=== PATIENT | female | born 1995 | race Caucasian/White ===

== ENCOUNTER 2017-07-06 00:26 | Emergency (ER) | payer SELFPAY ==
[2017-07-06] MEDS ORDERED: ACETAMINOPHEN 325 MG TABLET PO ONE (01:31)
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
--- NOTE | 2017-07-06 01:41 | RADIOLOGY REPORT (SQ) ---
EXAM DESCRIPTION: CT HEAD WITHOUT CLINICAL HISTORY: head and face pain , etoh COMPARISON: None available TECHNIQUE: Axial CT of the head obtained from the skull apex to the skull base without contrast. FINDINGS: No acute intracranial hemorrhage identified. No mass, mass effect, shift of the midline, abnormal extra-axial fluid collection or CT evidence of acute ischemic change identified. The ventricular system is unremarkable. No acute abnormalities of the supratentorial white matter, basal ganglia, cerebellum, or brainstem. Minimal mucosal thickening of the paranasal sinuses. Mastoid air cells are well aerated. No skull fracture identified. Visualized orbits and globes are unremarkable. DLP: 1083.99 mGy-cm IMPRESSION: 1. No acute intracranial abnormality identified. This exam was performed according to our departmental dose-optimization program, which includes automated exposure control, adjustment of the mA and/or kV according to patient size and/or use of iterative reconstruction technique.
--- NOTE | 2017-07-06 02:10 | RADIOLOGY REPORT (SQ) ---
EXAM DESCRIPTION: CT FACIAL AREA WITHOUT CLINICAL HISTORY: head and face pain , etoh COMPARISON: None available TECHNIQUE: Axial CT of the facial bone obtained without contrast. Coronal and sagittal reformatted images available. DLP: 771.94 mGy-cm FINDINGS: Orbits: Orbital floors and hinkle are intact. Intraorbital contents: The globes are intact. Extraocular muscles are symmetric. No intraconal fat stranding. Nasal bones: Intact. Maxilla: The maxillary hard palate is intact. Maxillary antral hinkle are intact. Sinuses: Minimal mucosal thickening of the paranasal sinuses. Zygomatic processes: Intact Pterygoid plates: Intact Mandible: Intact. No mandibular condylar dislocation. Skull base/cervical spine: Visualized portions of the skull base and cervical spine are intact. Visualized mastoid air cells are well aerated. Subcutaneous soft tissues: Mild contusion in the left facial subcutaneous soft tissues. Neck soft tissues: No definite abnormality involving the nasopharynx, oropharynx, or hypopharynx. Fossa of Rosenmuller are clear. Parotid glands and submandibular glands are unremarkable. No cervical lymphadenopathy. IMPRESSION: 1. No acute facial bone fracture identified. This exam was performed according to our departmental dose-optimization program, which includes automated exposure control, adjustment of the mA and/or kV according to patient size and/or use of iterative reconstruction technique.
--- NOTE | 2017-07-06 02:14 | RADIOLOGY REPORT (SQ) ---
EXAM DESCRIPTION: CT CERVICAL SPINE WITHOUT CLINICAL HISTORY: head and face pain , etoh COMPARISON: None available TECHNIQUE: Axial CT of the cervical spine obtained without contrast. FINDINGS: Straightening of the cervical lordosis is likely secondary to patient positioning. The atlantoaxial, atlantodental, and occipitoatlantal intervals are preserved. No fracture identified. Vertebral body height preserved. Film Hypoplastic right cervical rib. Prevertebral soft tissues are unremarkable. Intervertebral disc height preserved. Visualized skull base is intact. No fracture of the visualized facial bones. Visualized mastoid air cells and paranasal sinuses are well aerated. Visualized thyroid is unremarkable. No cervical lymphadenopathy. No pneumothorax in the visualized lung apices. DLP: 195.86 mGy-cm IMPRESSION: 1. No acute fracture or subluxation of the cervical spine. This exam was performed according to our departmental dose-optimization program, which includes automated exposure control, adjustment of the mA and/or kV according to patient size and/or use of iterative reconstruction technique.
[2017-07-06 02:27] VITALS: BP 142/107
== END 2017-07-06 02:20 | disposition left against medical advice (07) ==
LOC: ER 00:26
DX: S09.90XA Unspecified injury of head, initial encounter (principal); W19.XXXA Unspecified fall, initial encounter; Z88.0 Allergy status to penicillin; Z88.3 Allergy status to other anti-infective agents
CPT/HCPCS: 70450; 70486; 72125; 99281

== ENCOUNTER 2017-07-30 23:25 | Emergency (ER) | payer SELFPAY ==
[2017-07-30] MEDS ORDERED: LORAZEPAM INJ 2 MG/1 ML VIAL IM ONE (23:44)
[2017-07-30] MEDS ORDERED: HALOPERIDOL LACTATE INJ 5 MG/1 ML VIAL IM ONE (23:44)
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
[2017-07-31] MEDS ORDERED: HALOPERIDOL LACTATE INJ 5 MG/1 ML VIAL IM ONE (00:06)
[2017-07-31] MEDS ORDERED: DIPHENHYDRAMINE HCL 50 MG/ML VIAL IM ONE (00:07)
[2017-07-31 00:52] LABS: ABSOLUTE BASOPHILS # (AUTO) 0.1 10^3/uL (0.0-0.2); ABSOLUTE LYMPHOCYTES (AUTO) 1.6 10^3/uL (0.5-4.7); ABSOLUTE MONOCYTES (AUTO) 0.4 10^3/uL (0.1-1.4); ABSOLUTE NEUT (AUTO) 5.6 10^3/uL (1.7-8.2); BASOPHILS % (AUTO) 0.7 % (0-2); EOSINOPHILS % (AUTO) 0.4 % (0-6); HEMATOCRIT 44.8 % (36.0-47.0); HEMOGLOBIN 15.4 g/dL (12.0-15.5); LYMPHOCYTES % (AUTO) 21.2 % (13-45); MEAN CORPUSCULAR HEMOGLOBIN 32.7 pg (27.0-33.4); MEAN CORPUSCULAR HGB CONC 34.3 g/dL (32.0-36.0); MEAN CORPUSCULAR VOLUME 95 fl (80-97); MONOCYTES % (AUTO) 5.1 % (3-13); PLATELET COUNT 306 10^3/uL (150-450); RED BLOOD COUNT 4.69 10^6/uL (3.72-5.28); SEGMENTED NEUTROPHILS % (AUTO) 72.6 % (42-78); TOTAL CELLS COUNTED % (AUTO) 100 %; WHITE BLOOD COUNT 7.8 10^3/uL (4.0-10.5)
[2017-07-31] MEDS ORDERED: NORMAL SALINE 1000 ML 1,000 ML IV ONE (01:21)
[2017-07-31 01:31] LABS: ALANINE AMINOTRANSFERASE 38 U/L (9-52); ALBUMIN 4.5 g/dL (3.5-5.0); ALKALINE PHOSPHATASE 59 U/L (38-126); ANION GAP 18 (5-19); ASPARTATE AMINO TRANSFERASE 45 U/L (14-36); BILIRUBIN,TOTAL 0.1 mg/dL (0.2-1.3); BLOOD UREA NITROGEN 7 mg/dL (7-20); CALCIUM 9.3 mg/dL (8.4-10.2); CARBON DIOXIDE 18 mmol/L (22-30); CHLORIDE 115 mmol/L (98-107); GLUCOSE 105 mg/dL (75-110); POTASSIUM 4.2 mmol/L (3.6-5.0); SODIUM 150.8 mmol/L (137-145)
[2017-07-31 01:32] LABS: BILIRUBIN,DIRECT 0.1 mg/dL (0.0-0.4); TOTAL PROTEIN 7.7 g/dL (6.3-8.2)
[2017-07-31 01:42] LABS: ALCOHOL 351 mg/dL (NONE DETECTED)
--- NOTE | 2017-07-31 02:29 | RADIOLOGY REPORT (SQ) ---
EXAM DESCRIPTION: CT HEAD WITHOUT CLINICAL HISTORY: Trauma/injury. COMPARISON: 07/06/2017 TECHNIQUE: Axial CT of the head obtained from the skull apex to the skull base without contrast. FINDINGS: No acute intracranial hemorrhage identified. No mass, mass effect, shift of the midline, abnormal extra-axial fluid collection or CT evidence of acute ischemic change identified. The ventricular system is unremarkable. No acute abnormalities of the supratentorial white matter, basal ganglia, cerebellum, or brainstem. The visualized paranasal sinuses and the mastoids are clear. No skull fracture identified. Visualized orbits and globes are unremarkable. DLP: 1043.77 mGy-cm IMPRESSION: 1. No acute intracranial abnormality identified. This exam was performed according to our departmental dose-optimization program, which includes automated exposure control, adjustment of the mA and/or kV according to patient size and/or use of iterative reconstruction technique.
--- NOTE | 2017-07-31 02:30 | RADIOLOGY REPORT (SQ) ---
EXAM DESCRIPTION: CT CERVICAL SPINE WITHOUT CLINICAL HISTORY: Trauma/pain COMPARISON: None available TECHNIQUE: Axial CT of the cervical spine obtained without contrast. FINDINGS: Alignment of the cervical spine is maintained without evidence of subluxation. The atlantoaxial, atlantodental, and occipitoatlantal intervals are preserved. No fracture identified. Vertebral body height preserved. Prevertebral soft tissues are unremarkable. Intervertebral disc height preserved. Visualized skull base is intact. No fracture of the visualized facial bones. Visualized mastoid air cells and paranasal sinuses are well aerated. Visualized thyroid is unremarkable. No cervical lymphadenopathy. No pneumothorax in the visualized lung apices. DLP: 180.17 mGy-cm IMPRESSION: 1. No acute fracture or subluxation of the cervical spine. This exam was performed according to our departmental dose-optimization program, which includes automated exposure control, adjustment of the mA and/or kV according to patient size and/or use of iterative reconstruction technique.
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
[2017-07-31 06:36] VITALS: BP 89/59
[2017-07-31] MEDS ORDERED: NORMAL SALINE 1000 ML 1,000 ML IV PRN (10:32)
== END 2017-07-31 10:50 | disposition home or self-care (01) ==
LOC: ER 23:25
DX: F10.10 Alcohol abuse, uncomplicated (principal); Y90.1 Blood alcohol level of 20-39 mg/100 ml; S80.02XA Contusion of left knee, initial encounter; S80.01XA Contusion of right knee, initial encounter; I95.9 Hypotension, unspecified; V59.9XXA Occupant (driver) (passenger) of pick-up truck or van injured in unspecified traffic accident, initial encounter
CPT/HCPCS: 99284; 96372; 96360; 36415; 80307; 84703; 85025; 80053; 70450; 71260; 72125; 74177; J1630; J2060; J7030

== ENCOUNTER 2019-07-11 22:20 | Emergency (ER) | payer MEDICAID ==
[2019-07-11] MEDS ORDERED: OXYCODONE-ACETAMINOPHEN 5-325 MG TABLET PO ONE (23:29)
--- NOTE | 2019-07-11 23:35 | ER Document Report ---
ED General - General Chief Complaint: Rib Pain Stated Complaint: RIB PAIN Time Seen by Provider: 07/11/19 23:20 Primary Care Provider: LISANDRA GUPTA MD [Primary Care Provider] - Follow up as needed TRAVEL OUTSIDE OF THE [place] IN LAST 30 DAYS: No - HPI Notes: Patient is a 24-year-old G6, P2 female at approximately 34 weeks gestation who presents emergency department for evaluation of left-sided rib pain. Is been present for several days. She states that she feels the baby under there. She states she moved suddenly and felt a "pop, and has had pain since then. She has had no fevers. No cough. Despite being , she continues to smoke. Patient denies any abdominal pain, vaginal discharge or bleeding. She does feel the baby move. - Related Data Allergies/Adverse Reactions: neomycin [Neomycin] Allergy (Verified 07/06/17 00:34) IRRITATION/YOUNG Penicillins Allergy (Verified 07/06/17 00:34) Home Medications: vitamins Past Medical History - General Information source: Patient - Social History Smoking Status: Current Every Day Smoker Family History: Reviewed & Not Pertinent. denies: Malignancy, Thyroid Disfunction Patient has suicidal ideation: No Patient has homicidal ideation: No Pulmonary Medical History: Reports: Hx Asthma Renal/ Medical History: Denies: Hx Kidney Stones, Hx Peritoneal Dialysis GI Medical History: Reports: Hx Gastroesophageal Reflux Disease - with . Denies: Hx Hiatal Hernia, Hx Ulcer Past Surgical History: Reports: Hx Section - x2, Hx Oral Surgery - wisdom - Immunizations Immunizations up to date: Yes Hx Diphtheria, Pertussis, Tetanus Vaccination: Yes - 12/05/14 Review of Systems - Review of Systems Cardiovascular: See HPI Respiratory: See HPI -: Yes All other systems reviewed and negative Physical Exam - Vital signs Vitals: Temp Pulse Resp BP Pulse Ox 98.0 F 96 16 104/75 100 07/11/19 22:26 07/11/19 22:26 07/11/19 22:26 07/11/19 22:26 07/11/19 22:26 - Notes Notes: Is a 24-year-old female who appears her stated age in no acute distress. She smells very strongly of cigarette smoke. Vital signs reviewed, please refer to chart. Head is normocephalic, atraumatic. Pupils equal round, reactive to light. Neck is supple without meningismus. Heart is regular rate and rhythm. Lungs are clear to auscultation bilaterally. Chest wall excursion is equal bilaterally. No obvious deformities to the chest wall. Patient is tender to palpation over the eighth through 10th ribs on the left, particularly over the anterior axillary line. No subcutaneous emphysema. Abdomen is gravid, nontender, normoactive bowel sounds throughout. Extremities without cyanosis, clubbing. Posterior calves are nontender. Peripheral pulses are equal. Skin is warm and dry. Patient is awake, alert, neurological exam is nonfocal. Course - Re-evaluation Re-evalutation: 07/11/19 23:34 Patient presents emergency department for evaluation. She is complaining of pain in her left ribs. She is not tachycardic. She is not hypoxic. This is reproduced with palpation, and is likely musculoskeletal. Chest x-ray ordered, we will continue to monitor. 07/12/19 00:35 Patient's chest x-ray fails to show any acute concerning process. She has some chronic interstitial changes, for which I am not concerned at this time. Her pain seems to be chest wall. She is feeling improved after medication here. She is told moist heat, gentle stretching, and Tylenol would help her symptoms at home. Otherwise she is to follow-up with OB and return to the ED with worsening. - Vital Signs Vital signs: Temp Pulse Resp BP Pulse Ox 98.0 F 96 16 104/75 100 07/11/19 22:26 07/11/19 22:26 07/11/19 22:26 07/11/19 22:26 07/11/19 22:26 - Diagnostic Test Radiology reviewed: Reports reviewed Radiology results interpreted by me: 07/12/19 00:38 Chest X-Ray 07/11/19 23:29 IMPRESSION: Interstitial prominence of unknown chronicity. No focal airspace disease. If there is suspicion for focal bony injury, dedicated bone radiography of the area in question is advised. . Discharge - Discharge Clinical Impression: Chest wall pain Condition: Stable Disposition: HOME, SELF-CARE Instructions: Chest Wall Pain ([facility]) Additional Instructions: Tylenol as needed for pain. Moist heat and gentle stretching of the area. Follow-up with your OB this week. Return to the emergency department for worsening or new concerning symptoms of any sort. Referrals: LISANDRA GUPTA MD [Primary Care Provider] - Follow up as needed
--- NOTE | 2019-07-12 00:04 | RADIOLOGY REPORT (SQ) ---
CLINICAL INDICATION: left rib pain. TECHNIQUE: PA and lateral views were obtained of the chest COMPARISON: None. FINDINGS: The cardiomediastinal silhouette is normal. The lungs demonstrate interstitial prominence. No focal airspace disease. No evidence of effusion or pneumothorax. Presumed old posttraumatic change right posterior eighth rib. . IMPRESSION: Interstitial prominence of unknown chronicity. No focal airspace disease. If there is suspicion for focal bony injury, dedicated bone radiography of the area in question is advised. .
[2019-07-12 01:03] VITALS: BP 112/62
== END 2019-07-12 00:54 | disposition home or self-care (01) ==
LOC: ER 22:20
DX: O26.899 Other specified pregnancy related conditions, unspecified trimester (principal); R07.89 Other chest pain; O99.519 Diseases of the respiratory system complicating pregnancy, unspecified trimester; J45.909 Unspecified asthma, uncomplicated; O99.330 Smoking (tobacco) complicating pregnancy, unspecified trimester; F17.200 Nicotine dependence, unspecified, uncomplicated; Z79.899 Other long term (current) drug therapy; Z88.1 Allergy status to other antibiotic agents; Z88.0 Allergy status to penicillin; Z3A.00 Weeks of gestation of pregnancy not specified
CPT/HCPCS: 71046; 99283

== ENCOUNTER 2019-08-14 04:50 | Inpatient (IN) | payer MEDICAID ==
[2019-08-08 11:48] LABS: ABSOLUTE EOSINOPHILS # (AUTO) 0.3 10^3/uL (0.0-0.6); ABSOLUTE LYMPHOCYTES (AUTO) 2.5 10^3/uL (0.5-4.7); ABSOLUTE NEUT (AUTO) 10.3 10^3/uL (1.7-8.2); BASOPHILS % (AUTO) 0.2 % (0-2); HEMATOCRIT 34.7 % (36.0-47.0); MEAN CORPUSCULAR HEMOGLOBIN 30.2 pg (27.0-33.4); MEAN CORPUSCULAR HGB CONC 34.7 g/dL (32.0-36.0); MEAN CORPUSCULAR VOLUME 87 fl (80-97); MONOCYTES % (AUTO) 7.3 % (3-13); PLATELET COUNT 242 10^3/uL (150-450); RED BLOOD COUNT 3.98 10^6/uL (3.72-5.28); RED CELL DISTRIBUTION WIDTH 12.9 % (11.5-14.0); SEGMENTED NEUTROPHILS % (AUTO) 72.5 % (42-78); TOTAL CELLS COUNTED % (AUTO) 100 %; WHITE BLOOD COUNT 14.1 10^3/uL (4.0-10.5)
[2019-08-08 11:58] LABS: AMORPHOUS SEDIMENT,URINE TRACE /HPF; APPEARANCE,URINE SLIGHTLY-CLOUDY; BILIRUBIN,URINE NEGATIVE (NEGATIVE); COLOR,URINE YELLOW; GLUCOSE, URINE NEGATIVE (NEGATIVE); KETONES,URINE NEGATIVE (NEGATIVE); LEUKOCYTE ESTERASE,URINE LARGE (NEGATIVE); NITRITE,URINE POSITIVE (NEGATIVE); PROTEIN,URINE 30 mg/dL (NEGATIVE); URINE SPECIFIC GRAVITY 1.015; UROBILINOGEN,URINE NEGATIVE mg/dL (<2.0)
[2019-08-08 12:21] LABS: URINE AMPHETAMINES SCREEN NEGATIVE; URINE BARBITURATES SCREEN NEGATIVE; URINE BENZODIAZEPINES SCREEN NEGATIVE; URINE COCAINE SCREEN NEGATIVE; URINE MARIJUANA (THC) SCREEN NEGATIVE; URINE METHADONE SCREEN NEGATIVE; URINE PHENCYCLIDINE SCREEN NEGATIVE
[2019-08-14] MEDS ORDERED: CEFAZOLIN SODIUM 2 GM in DEXTROSE 5%-WATER 100 ML IV PRN (05:00)
[2019-08-14] MEDS ORDERED: RINGERS SOLUTION,LACTATED 1,000 ML IV ONE (05:30)
[2019-08-14] MEDS: RINGERS SOLUTION,LACTATED 1,000 ML IV PRN ×2 (06:47→16:16)
[2019-08-14] MEDS ORDERED: CEFAZOLIN INJ 1 GM VIAL ONE (07:14)
[2019-08-14] MEDS ORDERED: EPHEDRINE SULFATE INJ 50 MG/1 ML AMPULE ONE (07:29)
[2019-08-14] MEDS ORDERED: MIDAZOLAM 2 MG/2 ML INJ ONE (07:29)
[2019-08-14] MEDS ORDERED: OXYTOCIN 10 UNIT/ML VIAL ONE (07:29)
[2019-08-14] MEDS ORDERED: KETOROLAC TROMETHAMINE INJ/PF 30 MG/1 ML SDV ONE (07:29)
[2019-08-14] MEDS ORDERED: FENTANYL CITRATE INJ/PF 100 MCG/2 ML AMPUL ONE (07:29)
[2019-08-14] MEDS ORDERED: OXYTOCIN/NORMAL SALINE 20 UNIT/1,000 ML RTUINJ ONE (07:29)
[2019-08-14] MEDS ORDERED: ACETAMINOPHEN 1,000 MG/100 ML RTUPB IV ONE (07:30)
[2019-08-14] MEDS ORDERED: HYDROMORPHONE HCL INJ/PF 2 MG/ML AMPULE ONE (07:30)
[2019-08-14] MEDS ORDERED: ONDANSETRON HCL INJ/PF 4 MG/2 ML SDV ONE (07:30)
[2019-08-14] MEDS ORDERED: ONDANSETRON HCL INJ/PF 4 MG/2 ML SDV IV PRN (08:48)
[2019-08-14] MEDS ORDERED: PROMETHAZINE HCL INJ 25 MG/1 ML VIAL IV PRN ×3 (08:48→09:15)
[2019-08-14] MEDS ORDERED: MEPERIDINE HCL/PF INJ 25 MG/1 ML DISP.SYRIN IV PRN (08:48)
[2019-08-14] MEDS ORDERED: DIPHENHYDRAMINE HCL 50 MG/ML VIAL IV PRN (08:48)
[2019-08-14] MEDS ORDERED: OXYCODONE-ACETAMINOPHEN 5-325 MG TABLET PO PRN ×3 (08:48→09:15)
[2019-08-14] MEDS ORDERED: FENTANYL CITRATE INJ/PF 100 MCG/2 ML AMPUL IV PRN ×3 (08:48)
[2019-08-14] MEDS ORDERED: OXYTOCIN/NORMAL SALINE 20 UNIT/1,000 ML RTUINJ IV PRN (09:15)
[2019-08-14] MEDS ORDERED: SIMETHICONE 80 MG TAB.CHEW PO PRN (09:15)
[2019-08-14] MEDS ORDERED: HYDROMORPHONE HCL INJ/PF 2 MG/ML AMPULE IV PRN (09:15)
[2019-08-14] MEDS ORDERED: ACETAMINOPHEN 325 MG TABLET PO PRN (09:15)
[2019-08-14] MEDS ORDERED: DIPH/PERTUSS(ACELL)/TETANUS VAC/PF 0.5 ML SYR (>=10YO) IM PRN (09:15)
[2019-08-14] MEDS ORDERED: MEASLES,MUMPS&RUBELLA VACC/PF 0.5 ML VIAL SUBCUT PRN (09:15)
[2019-08-14] MEDS ORDERED: BUPIVACAINE HCL 0.5 % INJ/PF 30 ML SDV ONE (09:22)
--- NOTE | 2019-08-14 09:32 | Operative Report ---
Operative Report DATE OF SURGERY: 08/14/19 PREOPERATIVE DIAGNOSIS: History of prior CS x 2. Intrauterine at ter m. Right adnexal mass POSTOPERATIVE DIAGNOSIS: Same as above except fibroid in right cornua near right fallopian tube OPERATION: Repeat section. Lysis of adhesions between omentum and anterior abdominal wall SURGEON: MONIQUE BAGLEY ANESTHESIA: Spinal TISSUE REMOVED OR ALTERED: Placenta COMPLICATIONS: None ESTIMATED BLOOD LOSS: 550 INTRAOPERATIVE FINDINGS: Normal appearing uterus except near right uterine cornua is a small fibroid which is distending the base of the right fallopian tube. BOth tubes are otherwise normal. Both ovaries normal in appearance. Viable female infant. Placenta appeared grossly normal PROCEDURE: IV fluids: per anesthesia record Urinary output: 250 cc clear yellow urine Findings: Normal-appearing uterus other than fibroid in right uterine cornu dilating base right fallopian tube. Left fallopian tube and bilateral ovaries appear normal. Viable female infant Position: To recovery room in stable condition Description of procedure: The patient was taken to the operating room and general anesthesia was administered and found to be adequate. She was then placed on the OR table in the supine position with a slight leftward tilt. Patient was prepped and draped in usual sterile fashion. Ancef 2 gms was given IV prior to the procedure for infection prophylaxis. Timeout was taken. A Pfannenstiel skin incision was then made approximately 3 cm above the pubic symphysis and carried down to level the rectus fascia. The rectus fascia was then nicked in the midline with a scalpel and the fascial incision was extended laterally with use of curved Price scissors. The rectus fascia was then grasped with 2 Kocker clamps elevated and the underlying rectus muscle was dissected off both bluntly and sharply. The rectus muscles were then split in the midline and the peritoneum was entered. Scar tissue noted as above between omentum and anterior abdomial wall and was lysed. Any bleeding controlled with cautery. The peritoneal incision was then extended by manually stretching the peritoneum. The bladder blade was positioned. The bladder was noted to be out of harm's way. A scalpel was then used in the lower uterine for the hysterotomy, slowly until amniotomy was obtained a large amount of fluid was noted. The uterine incision was then manually stretched. The was noted to be in vertex postion. The head was elevated and brought to the hysterotomy incision. The head then delivered without difficulty. The shoulders and the rest of the body followed immediately. The cord was cut clamped and the was handed off to the nurse awaiting. Infant was crying prior to hand off. The placenta was manually delivered. Using a lap gauze the uterus was cleared of all clots and debris. The uterus was then exteriorized and a bladder blade was repositioned after bladder flap created. The uterine incision was then closed with 0 Chromic suture in a running locked fashion. A second layer of the same suture was used in a running locked imbricated fashion. The uterine incision was inspected and noted to be hemostatic. The posterior aspect of the uterus was then inspected and anatomy was seen as above. BOth ovaries are normal. The uterus was returned to its normal anatomic position within the abdominal cavity. Warm saline irrigation was used to clear all clots and debris from the abdomen. The uterine incision was inspected once more and noted to remain hemostatic. The bladder blade was removed and the peritoneum was closed with 2-0 chromic in a running fashion. The rectus muscles were then reapproximated and the rectus fascia was closed with a #1 PDS in a running fashion. The subcutaneous tissue was then inspected and any bleeding was controlled with Bovie electrocautery. The subcutaneous tissue was then closed with 2-0 Plain Gut suture in a running fashion. The skin was then closed with 4-0 Monocryl in a running subcuticular fashion. The skin incision was then clean dried and Dermabond was applied over the skin incision. All instrument sponge and needle counts were correct x3 for the procedure the patient tolerated the procedure well. She will proceed to recovery room in stable condition
[2019-08-14] MEDS ORDERED: PHENYLEPHRINE HCL INJ/PF 10 MG/1 ML SDV ONE (10:01)
[2019-08-14] MEDS: PRENATAL VITAMIN W DHA CAPSULE PO SCH (10:36)
[2019-08-14] MEDS: DOCUSATE SODIUM 100 MG CAPSULE PO SCH ×2 (10:36→17:55)
[2019-08-14] MEDS ORDERED: MORPHINE SULFATE 10 MG/ML INJ ONE (10:47)
[2019-08-14] MEDS: MORPHINE SULFATE 10 MG/ML INJ IV PRN ×2 (10:48→11:02)
[2019-08-14] MEDS: OXYCODONE-ACETAMINOPHEN 5-325 MG TABLET PO PRN ×2 (12:16→20:48)
[2019-08-14] MEDS ORDERED: KETOROLAC TROMETHAMINE INJ/PF 30 MG/1 ML SDV IV SCH (14:00)
[2019-08-14] MEDS: KETOROLAC TROMETHAMINE INJ/PF 30 MG/1 ML SDV IV SCH (17:55)
[2019-08-14] MEDS: NICOTINE 14 MG/24 HR PATCH.TD24 TD PRN (22:10)
--- NOTE | 2019-08-14 22:56 | PDOC DELIVERY SUMMARY ---
Delivery Summary - Maternal Hx : Hx # Term Pregnancies: 2 Hx # Pregnancies: 0 Hx Total # of Abortions (Sponateous & Elective): 3 AGUEDA: 08/21/19 Gestational Age: 39 Ruptured Membranes: AROM Time of Rupture: 08:30 Fluids: Clear - Delivery Presentation: Vertex Heart Rate Monitoring: Done Pre-Operatively Support Person Present: Yes Location: OR : Scheduled Placenta: Within Normal Limits Delivery of Placenta Date: 08/14/19 Delivery of Placenta Time: 08:33 - Medications Type of Anesthesia:: Spinal - Infant Assess and Care Baby 1 Female Delivery of Date: 08/14/19 Delivery of Infant Time: 08:32 at 1 minute: 8 at 5 minutes: 9 Preprinted Number On Band: [id number] Skin to Skin: Yes Skin to Skin (Mins): 4 To Nursery At: 08:42 Mode of Transport: Bassinet Infant Delivery Weight: 2,805 Delivery Length: 19.5 in - Delivery Personnel Nursery RN: QUINCY SWENSON RN: RACHEL PRICE MD: MONIQUE BAGLEY
[2019-08-15] MEDS: KETOROLAC TROMETHAMINE INJ/PF 30 MG/1 ML SDV IV SCH (01:41)
[2019-08-15] MEDS: OXYCODONE-ACETAMINOPHEN 5-325 MG TABLET PO PRN ×5 (03:31→21:53)
[2019-08-15 06:58] LABS: HEMATOCRIT 33.9 % (36.0-47.0); HEMOGLOBIN 11.8 g/dL (12.0-15.5); MEAN CORPUSCULAR HEMOGLOBIN 30.1 pg (27.0-33.4); MEAN CORPUSCULAR HGB CONC 34.7 g/dL (32.0-36.0); MEAN CORPUSCULAR VOLUME 87 fl (80-97); PLATELET COUNT 239 10^3/uL (150-450); RED CELL DISTRIBUTION WIDTH 13.6 % (11.5-14.0)
[2019-08-15] MEDS: IBUPROFEN 800 MG TABLET PO SCH ×3 (08:36→20:56)
[2019-08-15] MEDS: DOCUSATE SODIUM 100 MG CAPSULE PO SCH ×2 (09:13→17:21)
[2019-08-15] MEDS: PRENATAL VITAMIN W DHA CAPSULE PO SCH (09:13)
--- NOTE | 2019-08-15 09:36 | PDOC PROGRESS REPORT ---
Subjective-OB Progress Note for:: 08/15/19 - POD #1, doing well, UOB, voiding, sp Rpt C- section. B negative, Rubella Immune Physical Exam (OB) Vital Signs: Temp Pulse Resp BP Pulse Ox 97.4 F 97 18 121/77 100 08/15/19 07:42 08/15/19 07:42 08/15/19 07:42 08/15/19 07:42 08/15/19 07:42 Intake & Output 08/14/19 08/15/19 08/16/19 06:59 06:59 06:59 Intake Total 4530 Output Total 2500 Balance 2030 Weight 81.647 kg - General General Appearance: Appears well, Alert In distress: None - Dressing Removed: No Incision: Open Closure Type: Surgical Glue - Lochia Lochia Amount: Small 10-25 ml Lochia Color: Rubra/Red - Abdomen Description: Tender, Soft Hernia Present: No Fundal Description: Firm, Midline Fundal Height: u/u - u/2 - Respiratory Respiratory Status: No respiratory distress - Abdominal Inspection: Normal Distension: No distension Tenderness: Nontender - Genitourinary Genitourinary Note: voding - Extremities Upper extremity: Normal inspection Lower extremities: Normal inspection Objective-Diagnostic Laboratory: 08/15/19 06:44 08/15/19 06:44 WBC 11.0 H RBC 3.90 Hgb 11.8 L Hct 33.9 L MCV 87 MCH 30.1 MCHC 34.7 RDW 13.6 Plt Count 239 Assessment and Plan(PN) - Assessment and Plan (1) Anemia Qualifiers: Anemia type: iron deficiency Is this a current diagnosis for this admission?: Yes (2) Delivery by elective caesarean section Is this a current diagnosis for this admission?: Yes (3) Qualifiers: Weeks of gestation: 39 weeks Qualified Code(s): Z3A.39 - 39 weeks gestation of Is this a current diagnosis for this admission?: Yes Plan:: Ambulation encouraged, Routine orders - Time Spent with Patient Time with patient: Less than 15 minutes Medications reviewed and adjusted accordingly: Yes - Disposition Anticipated Discharge: Home Within: within 48 hours
[2019-08-15] MEDS ORDERED: IBUPROFEN 800 MG TABLET PO SCH (12:00)
[2019-08-15] MEDS: NICOTINE 14 MG/24 HR PATCH.TD24 TD PRN (23:47)
[2019-08-16] MEDS: OXYCODONE-ACETAMINOPHEN 5-325 MG TABLET PO PRN ×2 (02:45→08:10)
[2019-08-16] MEDS: IBUPROFEN 800 MG TABLET PO SCH ×2 (02:47→08:09)
[2019-08-16] MEDS: PRENATAL VITAMIN W DHA CAPSULE PO SCH (09:43)
[2019-08-16] MEDS: DOCUSATE SODIUM 100 MG CAPSULE PO SCH (09:43)
--- NOTE | 2019-08-16 09:53 | PDOC DISCHARGE SUMMARY ---
Impression - Admit/DC Date/PCP Admission Date/Primary Care Provider: 08/14/19 04:50 MONIQUE BAGLEY MD Discharge Date: 08/16/19 - POD #2, doing well, desires to go home today. B negative, baby is B negative, . - Discharge Diagnosis (1) Anemia Is this a current diagnosis for this admission?: Yes (2) Delivery by elective caesarean section Is this a current diagnosis for this admission?: Yes (3) Is this a current diagnosis for this admission?: Yes - Additional Information Resuscitation Status: Full Code Discharge Diet: As Tolerated, Regular Discharge Activity: Activity As Tolerated, No Driving, No Lifting Over 10 Pounds, Pelvic Rest Referrals: MONIQUE BAGLEY MD [Primary Care Provider] - Prescriptions: Ibuprofen [Motrin 800 mg Tablet] 800 mg PO Q6A #60 tablet Oxycodone HCl/Acetaminophen [Percocet 5-325 mg Tablet] 1 tab PO Q4HP PRN #30 tablet PRN Reason: Pain Scale Of 4 Home Medications: [id number]/Iron Fum/Folic/Docusate [ 19 Tablet] 1 each PO QAM 11/10/14 Ibuprofen [Motrin 800 mg Tablet] 800 mg PO Q6A #60 tablet 08/16/19 Oxycodone HCl/Acetaminophen [Percocet 5-325 mg Tablet] 1 tab PO Q4HP PRN #30 tablet 08/16/19 HPI Reason(s) for Admission: Ceasarean Section-Repeat Procedures: Ultrasound Intrapartum Procedure(s): : Low Cervical, Transverse Results Laboratory Results: WBC 11.0 10^3/uL (4.0-10.5) H 08/15/19 06:44 RBC 3.90 10^6/uL (3.72-5.28) 08/15/19 06:44 Hgb 11.8 g/dL (12.0-15.5) L 08/15/19 06:44 Hct 33.9 % (36.0-47.0) L 08/15/19 06:44 MCV 87 fl (80-97) 08/15/19 06:44 MCH 30.1 pg (27.0-33.4) 08/15/19 06:44 MCHC 34.7 g/dL (32.0-36.0) 08/15/19 06:44 RDW 13.6 % (11.5-14.0) 08/15/19 06:44 Plt Count 239 10^3/uL (150-450) 08/15/19 06:44 Lymph % (Auto) 18.0 % (13-45) 08/08/19 10:50 [place] % (Auto) 7.3 % (3-13) 08/08/19 10:50 Eos % (Auto) 2.0 % (0-6) 08/08/19 10:50 Baso % (Auto) 0.2 % (0-2) 08/08/19 10:50 Absolute Neuts (auto) 10.3 10^3/uL (1.7-8.2) H 08/08/19 10:50 Absolute Lymphs (auto) 2.5 10^3/uL (0.5-4.7) 08/08/19 10:50 Absolute Monos (auto) 1.0 10^3/uL (0.1-1.4) 08/08/19 10:50 Absolute Eos (auto) 0.3 10^3/uL (0.0-0.6) 08/08/19 10:50 Absolute Basos (auto) 0.0 10^3/uL (0.0-0.2) 08/08/19 10:50 Seg Neutrophils % 72.5 % (42-78) 08/08/19 10:50 Urine Color YELLOW 08/08/19 10:50 Urine Appearance SLIGHTLY-CLOUDY 08/08/19 10:50 Urine pH 6.0 (5.0-9.0) 08/08/19 10:50 Ur Specific [place] 1.015 08/08/19 10:50 Urine Protein 30 mg/dL (NEGATIVE) H 08/08/19 10:50 Urine Glucose (UA) NEGATIVE mg/dL (NEGATIVE) 08/08/19 10:50 Urine Ketones NEGATIVE mg/dL (NEGATIVE) 08/08/19 10:50 Urine Blood NEGATIVE (NEGATIVE) 08/08/19 10:50 Urine Nitrite POSITIVE (NEGATIVE) H 08/08/19 10:50 Urine Bilirubin NEGATIVE (NEGATIVE) 08/08/19 10:50 Urine Urobilinogen NEGATIVE mg/dL (<2.0) 08/08/19 10:50 Ur Leukocyte Esterase LARGE (NEGATIVE) H 08/08/19 10:50 Urine WBC (Auto) 18 /HPF 08/08/19 10:50 Urine RBC (Auto) 1 /HPF 08/08/19 10:50 Urine Bacteria (Auto) TRACE /HPF 08/08/19 10:50 Squamous Epi Cells Auto 1 /HPF 08/08/19 10:50 Amorphous Sediment Auto TRACE /HPF 08/08/19 10:50 Urine Mucus (Auto) RARE /LPF 08/08/19 10:50 Urine Ascorbic Acid NEGATIVE (NEGATIVE) 08/08/19 10:50 Urine Opiates Screen NEGATIVE 08/08/19 10:50 Urine Methadone Screen NEGATIVE 08/08/19 10:50 Ur Barbiturates Screen NEGATIVE 08/08/19 10:50 Ur Phencyclidine Scrn NEGATIVE 08/08/19 10:50 Ur Amphetamines Screen NEGATIVE 08/08/19 10:50 U Benzodiazepines Scrn NEGATIVE 08/08/19 10:50 Urine Cocaine Screen NEGATIVE 08/08/19 10:50 U Marijuana (THC) Screen NEGATIVE 08/08/19 10:50 Blood Type B NEGATIVE 08/12/19 15:45 Antibody Screen POSITIVE 08/12/19 15:45 Antibody Identification RHOGAM INDUCED ANTI-D 08/12/19 15:45 Plan Plan of Treatment: d/c home, f/up with [facility] in one week for incision check Time Spent: Less than 30 Minutes
[2019-08-16 11:32] VITALS: BP 114/72
== END 2019-08-16 12:40 | disposition home or self-care (01) | DRG 788 ==
LOC: 2S 04:50
PROVIDERS: ADMIT Obstetrics & Gynecology; ATTEND Obstetrics & Gynecology
PROC: 10D00Z1 Extraction of Products of Conception, Low, Open Approach (ICD-10-PCS; principal; 2019-08-14 07:45)
DX: O34.211 Maternal care for low transverse scar from previous cesarean delivery (principal); Z37.0 Single live birth; O99.013 Anemia complicating pregnancy, third trimester; D50.9 Iron deficiency anemia, unspecified; O34.13 Maternal care for benign tumor of corpus uteri, third trimester; D25.9 Leiomyoma of uterus, unspecified; Z3A.39 39 weeks gestation of pregnancy
CPT/HCPCS: 1961; 36415; 59025; 80307; 81001; 85025; 85027; 86850; 86870; 86900; 86901; 94760; 94799; J0131; J1170; J1885; J2250; J2270; J2370; J2405; J2590; J3010; J3490; J7120